=== PATIENT | female | born 1990 | race Caucasian/White ===

== ENCOUNTER 2023-01-18 19:11 | Emergency (ER) | payer BC, MEDICAID, SELFPAY ==
[2023-01-18 19:26] VITALS: BP 138/81; PULSE 81; RESP 16; TEMP 36.7; O2SAT 96; BMI 28.5
--- NOTE | 2023-01-18 19:29 | XRR_ITS ---
PROCEDURE INFORMATION: Exam: XR Right Knee Exam date and time: 01/18/2023 7:55 PM Age: 32 years old Clinical indication: Pain; Knee; Right; Additional info: Pain, swelling TECHNIQUE: Imaging protocol: Radiologic exam of the right knee. Views: 3 views. COMPARISON: No relevant prior studies available. FINDINGS: Bones/joints: Osseous structures are intact. Negative for fracture. Joint spaces are preserved. Soft tissues: Normal. XR/XR knee RT 3V* [id number] IMPRESSION: No acute findings.
--- NOTE | 2023-01-18 19:49 | W.ED.EXTPRO ---
HPI - Extremity Problem General: Chief complaint: Extremity Injury, Lower Stated complaint: right knee swelling/pain Time Seen by Provider: 01/18/23 19:49 History of Present Illness: 32-year-old female comes in today for complaints of right knee pain with burning sensation radiating to the ankle. Patient reports some increased swelling to the extremities. Patient appears nontoxic. Patient appears in no acute distress. Patient is attending [facility] for rehab. Patient states on the she was playing basketball and injured her knee. Patient was evaluated at urgent care and was told that she had sprained her knee and recommended use acetaminophen and ibuprofen for pain. Patient was concerned due to swelling of the extremity. Associated symptoms: Deny chest pain or fever(s) Review of Systems General: Reports: 10 or more systems reviewed and unremarkable except in HPI and below Const: Denies: fever(s) or chills Card: Denies: chest pain Resp: Denies: dyspnea GI: Denies: nausea, vomiting, diarrhea or constipation : Denies: difficulty voiding Musc: Reports: extremity pain and extremity swelling Physical Exam Const: COMMON NORMALS: alert HENMT: COMMON NORMALS: normocephalic HEAD & SCALP: normocephalic Neck/C-Spine: COMMON NORMALS: full ROM Resp: COMMON NORMALS: normal respiratory effort and clear to auscultation bilaterally AUSCULTATION: clear to auscultation bilaterally Cardio: COMMON NORMALS: regular rate and regular rhythm RATE: regular rate RHYTHM: regular rhythm Extremity: RIGHT LOWER EXTREMITY: Yes knee joint (Normal range of motion, no obvious swelling) Right knee: Yes inspection, Yes palpation (Tenderness medial joint line) and Yes ROM and Yes lower leg (Tenderness on palpation, no swelling) Neuro: SENSORIUM/ORIENTATION: Yes alert Skin: COMMON NORMALS: no rashes or lesions noted GENERAL SKIN EXAM: no rashes or lesions noted Course Vital Signs: Vital signs: Vital Signs Temperature 98.1 F 01/18/23 19:26 Pulse Rate 81 01/18/23 19:26 Respiratory Rate 16 01/18/23 19:26 Blood Pressure 138/81 01/18/23 19:26 Pulse Oximetry 96 01/18/23 19:26 Oxygen Delivery Me thod 01/18/23 19:26 MDM - Extremity (Nontraumatic) Medical Decision Making 32-year-old female comes in today for complaints of injury to the right lower leg. On exam patient has medial joint line tenderness. No obvious swelling. Distal pulses and sensations are intact. Patient is hypersensitive with pain on palpation of the medial right lower leg. Differential diagnosis includes knee sprain, meniscal injury, Rodriguez's cyst. X-ray of the knee and ankle noted no abnormality. Ultrasound of the knee indicated no sign of Rodriguez's cyst. Reviewed exam with patient with recommendations for treatment of sprain of the knee and need for follow-up or return to the ER. Patient was written for some diclofenac for pain and inflammation. Otherwise she could use Tylenol. Patient was also instructed on the use of ice and heat for further pain relief. Discharge Plan Discharge Patient Disposition: Home Clinical Impression: Acute internal derangement of knee Condition: Stable Prescriptions: New diclofenac potassium 50 mg tablet 50 mg PO TID PRN (Reason: pain (scale score 7-10)) Qty: 7 0RF Discharge Orders: Discharge ED (Routine); Ordered 01/18/23 Ordered By: Fran Bui Discharge Diet: Usual diet Discharge Activity: Increase activity as tolerated Patient Instructions: Musculoskeletal Pain (ED) Activity Restrictions/Additional Instructions: Activity as tolerated. Use crutches if unable to bear weight comfortably. Use acetaminophen to help control pain. Use diclofenac for severe pain. Do not use diclofenac with ibuprofen or naproxen at the same time. Use ice or heat for further pain relief. Increase activity as tolerated. It may take 4 to 6 weeks for full recovery of the knee injury. Follow-up with primary care in 1 week for recheck. Return to ED for new concerns. 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
--- NOTE | 2023-01-18 19:54 | USR_ITS ---
PROCEDURE INFORMATION: Exam: US Right Non-Vascular Joint or Other Extremity Structure Exam date and time: 01/18/2023 8:05 PM Age: 32 years old Clinical indication: Pain; Knee; Right; Additional info: Right knee, R/O rodriguez's cyst TECHNIQUE: Imaging protocol: Right US joint or other nonvascular extremity structure or structures. Real-time ultrasound with image documentation. Limited study. Exam focused on the lower extremity in the region of clinical interest. COMPARISON: CR (LOW EXM, ) 01/18/2023 7:55 PM FINDINGS: Soft tissues: Unremarkable appearance of the popliteal fossa. No Rodriguez's cyst. US/US soft tissue/extremity [id number] IMPRESSION: Unremarkable US.
[2023-01-18] MEDS: ketorolac 30 mg/mL INJ IM (20:04)
--- NOTE | 2023-01-18 20:17 | XRR_ITS ---
PROCEDURE INFORMATION: Exam: XR Right Ankle Exam date and time: 01/18/2023 8:26 PM Age: 32 years old Clinical indication: Pain; Ankle; Right; Additional info: Injury TECHNIQUE: Imaging protocol: Radiologic exam of the right ankle. Views: 3 or more views. COMPARISON: US soft tissue/extremity [id number] 01/18/2023 8:05 PM FINDINGS: Bones/joints: Osseous structures are intact. Negative for fracture. Joint spaces are preserved. Soft tissues: Normal. XR/XR ankle RT min 3V* [id number] IMPRESSION: No acute findings.
[2023-01-18 21:21] VITALS: PULSE 96; O2SAT 99
--- NOTE | 2023-01-28 15:42 | DCPLANNER ---
assistant manager called patient due to no primary care physician - no answer at this time
== END 2023-01-18 21:21 | disposition home or self-care (01) ==
PROVIDERS: Emergency Provider Nurse Practitioner Family
DX: M23.91 Unspecified internal derangement of right knee (principal)
CPT/HCPCS: 73562; 73610; 76882; 96372; 99284; E0114; J1885